=== PATIENT | male | born 1940 | race Caucasian/White ===

== ENCOUNTER 2017-01-07 08:06 | Day surgery (SDC) | payer OTHER ==
--- NOTE | 2017-01-06 21:24 | PDHPUP ---
History & Physical Update H&P update statement: This history and physical update is based on an assessment of the patient which was completed after admission or registration (within 24 hours), but prior to the surgery/procedure. Reviewed Jan 06 2100.
--- NOTE | 2017-01-07 07:35 | PDANEPAE ---
ANE History of Present Illness 76 yo male with stage IV CKD for AVF in anticipation of hemodialysis need. ANE Past Medical History - Cardiovascular History Hx Hypertension: Yes Hx Arrhythmias: Yes Hx Chest Pain: No Hx Coronary Artery / Peripheral Vascular Disease: No Hx CHF / Valvular Disease: No Hx Palpitations: No Cardiovascular History Comment: BRADYCARDIA. SSS, AV block. s/p PACEMAKER - Pulmonary History Hx COPD: No Hx Asthma/Reactive Airway Disease: No Hx Recent Upper Respiratory Infection: No Hx Oxygen in Use at Home: No Hx Sleep Apnea: Yes Sleep Apnea Screening Result - Last Documented: Positive Pulmonary History Comment: uses CPAP - Neurologic History Hx Cerebrovascular Accident: No Hx Seizures: No Hx Dementia: No - Endocrine History Hx Diabetes: Yes Hypothyroid: Yes Endocrine History Comment: DM II - Renal History Hx Renal Disorders: Yes Renal History Comment: RENAL FAILURE - TO START DIALYSIS - Liver History Hx Hepatic Disorders: No - Neurological & Psychiatric Hx Hx Neurological and Psychiatric Disorders: No - Cancer History Hx Cancer: No - Congenital Disorder History Hx Congenital Disorders: No - GI History Hx Gastrointestinal Disorders: No Gastrointestinal History Comment: ACID REFLUX - Other Health History Other Health History: POSS ANEMIA, low plt, leukopenia - Chronic Pain History Chronic Pain: No - Surgical History Prior Surgeries: PACEMAKER IMLANTED 3-4YRS AGO ANE Review of Systems Review of Systems: - Exercise capacity METS (RN): 3 METS METS Comment: SOB with 1 FOS. - Systems Constitutional: Reports: no symptoms Cardiac: Reports: edema (secondary to CKD) Respiratory: Reports: shortness of breath Neurological: Reports: no symptoms - Pacemaker Pacemaker Type: Permanent Pacer/Defib Pacemaker Rn Birthing: [employer]tr[employer] Date Pacemaker Last Checked: 3 MOS AGO (09/2016) ANE Patient History - Allergies Allergies/Adverse Reactions: clonidine Allergy (Verified 01/07/17 08:43) Unknown ezetimibe [From Zetia] Allergy (Verified 01/07/17 08:43) HIVES,DIFFICULTY BREATHING,SWOLLEN JOINTS hydrocodone Allergy (Verified 01/07/17 08:43) OVERDOSE AND WENT IN TO KIDNEY FAILURE metoprolol Allergy (Verified 01/07/17 08:43) Unknown NSAIDS (Non-Steroidal Anti-Inflamma Allergy (Verified 01/07/17 08:43) OVERDOSED AND WENT INTO KIDNEY FAILURE pravastatin Allergy (Verified 01/07/17 08:43) HIVES, DIFFICULTY BREATHING,SWOLLEN JOINTS rosuvastatin [From Crestor] Allergy (Verified 01/07/17 08:43) HIVES, BREATHING DIFFICULTY, SWOLLEN JOINTS - Home Medications Home Medications: Amlodipine Besylate 01/06/17 [Last Taken 01/06/17] Aspirin 01/06/17 [Last Taken 01/06/17] Furosemide 01/06/17 [Last Taken 01/06/17] Glimepiride 01/06/17 [Last Taken 01/06/17] Glucosamine 01/06/17 [Last Taken 01/06/17] Herbals/Supplements -Info Only 01/06/17 [Last Taken 01/06/17] Labetalol HCl 01/06/17 [Last Taken 01/07/17] Lantus Solostar 01/06/17 [Last Taken 01/06/17] Levothyroxine 01/06/17 [Last Taken 01/06/17] Losartan Potassium 01/06/17 [Last Taken 01/06/17] Ocuvite Softgel 01/06/17 [Last Taken 01/06/17] Ondansetron 01/06/17 [Last Taken 01/06/17] Terazosin HCl 01/06/17 [Last Taken 01/06/17] - Smoking Hx Smoking Status: Former smoker ANE Labs/Vital Signs - Labs Result Diagrams: 01/07/17 08:30 01/07/17 08:30 - Vital Signs Height: 162.56 cm Weight: 92.533 kg ANE Physical Exam - Airway Neck exam: FROM - Pulmonary Pulmonary: other (diminished BS at bases) - Cardiovascular Cardiovascular: regular rate and rhythym, other (split S2) - ASA Status ASA Status: III ANE Anesthesia Plan Anesthesia Plan: general endotracheal anesthesia
[2017-01-07] MEDS ORDERED: THROMBIN (BOVINE) 5,000 UNIT VIAL TP ONE (08:21)
[2017-01-07] MEDS ORDERED: BUPIVACAINE 0.5% 30 ML SDV ONE (08:21)
[2017-01-07] MEDS ORDERED: THROMBIN (BOVINE) 20,000 UNIT SPRAY TP ONE (08:22)
[2017-01-07] MEDS ORDERED: PAPAVERINE HCL 60 MG/2 ML SDV ONE (08:22)
[2017-01-07] MEDS ORDERED: CLINDAMYCIN 900 MG/DEXTROSE 50 ML IV ONE (08:25)
[2017-01-07] MEDS ORDERED: NS 1,000 ML IV ONE (08:30)
[2017-01-07 08:55] LABS: HEMATOCRIT 26.5 % (40.0-51.0); HEMOGLOBIN 8.3 g/dL (13.7-17.5); MEAN CELL HEMOGLOBIN 28.6 pg (27.9-34.1); MEAN CELL HEMOGLOBIN CONCENTR. 31.3 g/dL (32.4-36.7); MEAN CELL VOLUME 91.4 fL (81.5-99.8); RED BLOOD CELL COUNT 2.9 10^6/uL (4.40-6.38); RED CELL DISTRIBUTION WIDTH 18.4 % (11.5-15.2)
[2017-01-07 09:06] LABS: ANION GAP 18 mEq/L (8-16); CALCIUM 8.9 mg/dL (8.5-10.4); CARBON DIOXIDE 20 mEq/l (22-31); CHLORIDE 106 mEq/L (97-110); CREATININE 4.3 mg/dL (0.7-1.3); GLOMERULAR FILTRATION RATE 13; GLUCOSE 116 mg/dL (70-100); POTASSIUM 3.8 mEq/L (3.5-5.2); SODIUM 144 mEq/L (134-144)
[2017-01-07] MEDS ORDERED: fentaNYL 100 MCG/2 ML INJ ONE (09:25)
[2017-01-07] MEDS ORDERED: PROPOFOL 200 MG/20 ML VIAL ONE (09:25)
[2017-01-07] MEDS ORDERED: CISATRACURIUM BESYLATE 20 MG/10 ML VIAL IV ONE (09:25)
[2017-01-07] MEDS ORDERED: LIDOCAINE 2% 5 ML SDV ONE (09:25)
[2017-01-07] MEDS ORDERED: HEPARIN 10,000 UNIT/10 ML MDV ONE (09:44)
[2017-01-07] MEDS ORDERED: PHENYLEPHRINE HCL 100 MCG/ML SYR ONE (10:19)
[2017-01-07] MEDS ORDERED: VASOPRESSIN 20 UNIT/ML VIAL ONE (10:34)
[2017-01-07] MEDS ORDERED: ONDANSETRON 4 MG/2 ML VIAL ONE (10:58)
[2017-01-07] MEDS: PROTAMINE SULFATE 50 MG/5 ML VIAL IVP ONE ×2 (10:58→11:04)
[2017-01-07] MEDS ORDERED: NEOSTIGMINE METHYLSULFATE 3 MG/3 ML SYR ONE (11:03)
[2017-01-07] MEDS ORDERED: GLYCOPYRROLATE 0.2 MG/1 ML VIAL ONE (11:03)
[2017-01-07] MEDS ORDERED: ACETAMINOPHEN 500 MG TAB PO PRN (11:07)
[2017-01-07] MEDS ORDERED: fentaNYL 100 MCG/2 ML INJ IVP PRN (11:07)
[2017-01-07] MEDS ORDERED: ALBUTEROL 3 ML DEYVIAL IH PRN (11:07)
[2017-01-07] MEDS ORDERED: PROMETHAZINE HCL 25 MG/ML INJ IVP PRN (11:07)
[2017-01-07] MEDS ORDERED: HYDROCODONE/APAP 5/325 TAB PO PRN (11:07)
[2017-01-07] MEDS ORDERED: NALOXONE HCL 0.4 MG/ML INJ IVP PRN (11:07)
--- NOTE | 2017-01-07 11:40 | POSTOPPROG ---
Post Op Note Date of Operation: 01/07/17 Surgeon: Nestor Smith Office Manager Receptionist: Cade Elizondo Anesthesiologist: Dr Kim Anesthesia: GET(General Endotracheal) Pre-op Diagnosis: renal failure Post-op Diagnosis: same Indication: renal failure, need for access Procedure: Right radiocephalic AVF Inf/Abcess present in the surg proc area at time of surgery?: No Depth: Deep Incisional (Fascial) EBL: Minimal
--- NOTE | 2017-01-07 11:47 | POSTANESTH ---
Post Anesthetic Evaluation Cardiovascular Status: Normal, Stable Respiratory Status: Normal, Stable Level of Consciousness/Mental Status: Can Participate in Eval, Mildly Sleepy, Arousable Pain Control: Adequate, Prn Tx Ordered Nausea/Vomiting Control: Adequate, Prn Tx Ordered Complications Possibly Related to Anesthesia: None Noted (BS 162. Will not treat at this time, just recommend pt resume DM meds when he goes home.)
[2017-01-07 13:38] VITALS: PULSE 54; RESP 20; O2SAT 93
[2017-01-07 14:26] VITALS: TEMP 97.7
--- NOTE | 2017-01-07 18:03 | PDHOMEO2F ---
Home Oxygen Face to Face Home Orders: I certify that a physician or a nurse practitioner or physician's assistant prosecuting attorney has had a [id number] encounter with this patient on the date of this order due to the diagnosis listed, which relates to the primary reason the patient requires home oxygen. Alternative treatments have been tried, or considered, and deemed ineffective. It is anticipated that supplemental oxygen will result in improvement with treatment. Home oxygen qualifying diagnosis: acute on chronic hypoxemia SpO2 on room air (%): 84%-89% Frequency of home oxygen needed: continuous Home oxygen liters per minute: 2 Home oxygen delivery device: nasal cannula, other (bleed into CPAP machine during sleep) Concentrator: Yes E-tanks for mobility and back up: Yes If ordering portable O2, is the patient mobile in the home?: Yes I certify that, based on these findings, the home oxygen is medically necessary for this patient for the following length of time. Length of time home oxygen needed: 3 months (Until volume overload resolves. Pt should visit PCP for help achieving this goal.)
[2017-01-07 18:36] VITALS: BP 152/68
== END 2017-01-07 18:50 | disposition home or self-care (01) ==
LOC: FSGY 08:06
PROVIDERS: ATTEND Surgery
PROC: 03170ZD Bypass Right Brachial Artery to Upper Arm Vein, Open Approach (ICD-10-PCS; principal; 2017-01-07 09:30)
DX: N18.4 Chronic kidney disease, stage 4 (severe) (principal); E11.22 Type 2 diabetes mellitus with diabetic chronic kidney disease; I12.9 Hypertensive chronic kidney disease with stage 1 through stage 4 chronic kidney disease, or unspecified chronic kidney disease; G47.33 Obstructive sleep apnea (adult) (pediatric); Z95.0 Presence of cardiac pacemaker; Z79.4 Long term (current) use of insulin
CPT/HCPCS: J1644; J2370; J2405; J2440; J2704; J2710; J2720; J3010